=== PATIENT | female | born 1975 | race Caucasian/White ===

== ENCOUNTER 2020-07-30 06:56 | Inpatient (IN) ==
[2020-07-30 07:05] VITALS: BMI 29.8
[2020-07-30] MEDS ORDERED: NS 1000 ML 1,000 ML IV ONE (07:07)
--- NOTE | 2020-07-30 07:13 | DR.AMS ---
HPI Time Seen Time Seen by Provider: 07/30/20 07:06 PCP Primary Care Physician: KEVON HPI Comment HPI Comment: PATIENT IS 45YR OLD FEMALE IN ER VIA EMS UNRESPONSIVE. SHE WAS FOUND IN HER HOME UNRESPONSIVE. EMS WAS CALL BECAUSE SHE WAS CHOKING BUR WAS VOM ITING AND UNRESPONSIVE WHEN EMS ARRIVED. BP ELEVATED AND PULSE IN THE 40S. HISTORY HYPERTENSION. TEMP LOW, 93.6'F. ON NR MASK WITH SPONTANOUS RESPIRATION 100%. O2 SAT. Complaint Cheif Complaint Doctors Comments: UNRESPONSIVE, EMS CALL TO PATIENT THAT WAS CHOKING. Chief Complaint:: ANTHONY CO. EMS RESPONDS TO INITIAL CALL OF PT. CHOKING. [facility] THEN INFORMS ED STAFF THAT PT. WAS NOT BREATHING AND WAS UNRESPONSIVE. PRIOR TO ARRIVAL, PT. WAS BEING VENTILATED WITH AMBU BAG. ONCE PT. ARRIVES TO THE ER, PT. IS ON NON RE-BREATHER @ 100%. PT. HAD VOMITED ON HERSELF ZOO VETERINARIAN. PT. STILL UNRESPONSIVE. COVID-19 Coronavirus risk:travel/contact w/high risk person: No Has patient experienced Coronavirus symptoms: No Reviewed Nurses Notes Reviewed: Yes Source History Provided: EMS Mode of Arrival Mode of Arrival: EMS Timing Onset of Chief Complaint: 07/30/20 Came On: Suddenly Symptoms: Unchanged Symptom Onset: Unknown Duration Duration: Constant Duration: Hours Quality Quality: Change in Behavior Severity Severity: Unresponsive Context Recent: Vomiting; denies Fever (LOW TEMPERATURE.) History Of: None Associated Signs and Symptoms Associated Signs and Symptoms: Unresponsiveness PMH PMH Past Medical History: Yes Past Medical History: Hypertension Past Medical History Comment: ALCOHOL ABUSE Past Surgical History: Yes Surgical History: Unknown Family History History of Family Medical Conditions: No Social History Does patient currently use any type of tobacco product: Yes Have you used tobacco products in the last 12 months: Yes Type of Tobacco Use: Cigarettes Does any household member use tobacco: Yes Alcohol Use: Heavy Do you use any recreational Drugs:: Yes Lives With: Significant Other Lives Where: Home Travel Risk Coronavirus risk:travel/contact w/high risk person: No Has patient experienced Coronavirus symptoms: No Infectious screening In the last 2 months have you had wt loss of >10#?: NO Have you had fever, night sweats or hemotysis?: No Have you traveled outside the country in the last 6 months?: No Isolation: Standard ROS Review of Systems Constitutional: See HPI, Diaphoresis and Other (PATIENT UNRESPONSIVE.); negative Fever (LOW TEMPERATURE.) Eyes: See HPI and Other (PATIENT UNRESPONSIVE.) ENTM: See HPI Respiratoy: See HPI, Short of Breath, Wheezing and Other (PATIENT IS UNRESPONSIVE.) Cardiovascular: See HPI and Other (UNRESPONSIVE.); negative Palpitations (BRADYCARDIA.) Gastrointestinal/Abdominal: See HPI, Vomiting and Other (UNRESPONSIVE.) Genitourinary: See HPI and Other (UNRESPONSIVE.) Neurological: See HPI and Other (UNRESPONSIVE.) Musculoskeletal: See HPI and Other (UNRESPONSIVE.) Integumentary: See HPI and Other (UNRESPONSIVE.) Hematologic/Lymphatic: See HPI and Other (UNRESPONSIVE.) Endocrine: See HPI and Other (UNRESPONSIVE.) Psychiatric: See HPI and Other (UNRESPONSIVE.) Unable to Obtain Due To: Medical urgency PE Vitals Vital Signs: Temp Pulse Resp BP Pulse Ox 07/30/20 08:46 75 18 146/66 100 07/30/20 08:45 75 20 100 07/30/20 08:30 72 19 183/91 100 07/30/20 08:15 59 L 20 186/92 100 07/30/20 08:07 74 24 190/91 100 07/30/20 08:01 64 14 187/82 100 07/30/20 08:00 68 13 100 07/30/20 07:51 63 13 193/97 100 07/30/20 07:45 61 13 100 07/30/20 07:40 64 14 199/88 99 07/30/20 07:36 52 L 19 197/88 100 07/30/20 07:34 57 L 21 100 07/30/20 07:15 51 L 13 100 07/30/20 07:10 62 13 195/83 100 07/30/20 07:00 54 L 23 200/93 100 07/30/20 06:59 93.5 F L 67 10 L 200/93 100 07/30/20 06:58 52 L 13 100 General Limitations: Other (UNRESPONSIVE.) General Appearance: In Distress and Other (UNRESPONSIVE.) Head Head Exam: Atraumatic and Other (UNRESPONSIVE.) Head Exam Physical: Other (UNRESPONSIVE. NONE OF THE ABOVE NOTED.) Eyes Eye exam: Periorbital Swelling and Other (SMALL PUPILS WITH SLUGGIST RESPONSE TO LIGHT.); negative Scleral Icterus, Conjunctival Injection and Periorbital Tenderness ENT ENT Exam: Normal Oropharynx, Normal External Ear Exam and TM's Normal Bilaterally External Ear Exam: negative Auricular Hematoma and Auricular Trauma TM/Canal Exam: Bilateral: Normal Nose Exam: negative Nasal Deviation and Septal Hematoma Mouth Exam: negative Lip Swelling and Tongue Swelling Throat Exam: negative Tonsillar Erythema, Tonsillomegaly and Tonsillar Exudate Neck Neck Exam: Trachea Midline Chest Chest Inspection: Symmetric Chest Wall Rise; negative Rash Respiratory Respiratory Exam: Accessory Muscle Use and Respiratory Distress Respiratory Exam: Bilateral: Wheezing and Bilateral: Rhonchi, Left: Wheezing and Left: Rhonchi, Right: Wheezing and Right: Rhonchi, Upper: Wheezing and Upper: Rh onchi and Lower: Wheezing and Lower: Rhonchi Cardiovascular Cardiovascular Exam: Tachycardia and Other (UNRESPONSIVE.); negative Systolic Murmur and Diastolic Murmur Abdominal Exam Abdominal Exam: Normal Bowel Sounds, Soft and Other (UNRESPONSIVE.) Abdominal Tenderness: Other (UNRESPONSIVE) Extremities Extremities Exam: Normal Capillary Refill and Other (UNRESPONSIVE); negative Edema Back Back Exam: Other (UNRESPONSIVE.) Neurological Neurological Exam: Other (UNRESPONSIVE.) Speech: Other (UNRESPONSIVE.) Cranial Nerve Exam: Spinal Accessory Function (XI): Normal Upper Motor Neuron Exam: Babinski Sign: Normal Psychological Psychiatric Exam: Other (UNRESPONSIVE.) Expanded Psychiatric Exam: Other (UNRESPONSIVE.) Skin Skin Exam: Other (UNRESPONSIVE.); negative Rash and Cyanosis (ON 100% NR MASK.) MDM Differential Diagnosis Metabolic: Dehydration, Hypercalcemia, Hypernatremia, Hypoglycemia and Hyponatremia Structural: Mass Lesion Toxicologic: Drug Overdose Infectious: Sepsis and UTI Environmental: Hyperthermia and Hypothermia COURSE Treatment Treatment: SEE ORDERS. NS 1L IV BOLUS. HYDRALAZINE 10MG IV. ZOSYN 3.375MG IVPB. CRETICAL CARE TIME 25MINS. IT INVOLVE STABILIZING PATIENT, DISCUSSING PATIENTS CONDITION WITH HER FAMILY AND REWARMING PATIENT TO NORMAL TEMPERATURE. PATIENT STARTED REPONSING WHEN HER CARE WAS TURN OVER TO DR. DRIVER AT 08:05AM. Reevaluation 1st: Unchanged (STILL UNRESPONSIVE. TEMP INPROVING.) 2nd: Improved (BP STILL ELEVATED. IV HYDRALAZINE GIVEN. HR IN 60S AND 70S.) Education/Counseling Education/Counseling: Family Educated On: Diagnosis ROR Labs Reviewed Laboratory Results Reviewed?: Yes Result Diagrams: 07/30/20 07:58 07/30/20 07:58 Laboratory: WBC 7.5 X10^3/uL (3.6-10.0) 07/30/20 07:58 RBC 4.80 X10^6/uL (3.5-5.4) 07/30/20 07:58 Hgb 15.0 g/dL (12.0-16.0) 07/30/20 07:58 Hct 45.2 % (36.0-47.0) 07/30/20 07:58 MCV 94.2 fL (80.0-100.0) 07/30/20 07:58 MCH 31.2 pg (27.0-34.0) 07/30/20 07:58 MCHC 33.1 g/dL (33.0-35.0) 07/30/20 07:58 RDW 13.4 % (11.6-16.5) 07/30/20 07:58 Plt Count 258 X10^3/uL (150.0-450.0) 07/30/20 07:58 MPV 7.2 fL (7.4-11.0) L 07/30/20 07:58 Neut % (Auto) 76.8 % (42.0-75.0) H 07/30/20 07:58 Lymph % (Auto) 16.0 % (21.0-51.0) L 07/30/20 07:58 [place] % (Auto) 4.8 % (0.0-13.0) 07/30/20 07:58 Eos % (Auto) 1.5 % (0.9-2.9) 07/30/20 07:58 Baso % (Auto) 0.9 % (0.2-1.0) 07/30/20 07:58 Neut # (Auto) 5.8 x10^3/uL (2.2-4.8) H 07/30/20 07:58 Lymph # (Auto) 1.2 X10^3/uL (1.3-2.9) L 07/30/20 07:58 [place] # (Auto) 0.4 x10^3/uL (0.3-0.8) 07/30/20 07:58 Eos # (Auto) 0.1 x10^3/uL (0.0-0.2) 07/30/20 07:58 Baso # (Auto) 0.1 X10^3/uL (0.0-0.1) 07/30/20 07:58 Absolute Nucleated RBC 0.1 /100WBC 07/30/20 07:58 Sample Site Left radial 07/30/20 06:55 ABG pH 7.300 (7.35-7.45) L 07/30/20 06:55 ABG pCO2 54.0 mmHg (35.0-45.0) H* 07/30/20 06:55 ABG pO2 357.0 mmHg (80.0-100.0) H 07/30/20 06:55 ABG HCO3 26.6 mmol/L (22-26) H 07/30/20 06:55 ABG O2 Saturation 100.0 % (90-100) 07/30/20 06:55 ABG Base Excess -0.6 mmol/L (-2.0-2.0) 07/30/20 06:55 Emanuel Test Pos 07/30/20 06:55 A-a Gradient 289.0 mmHg 07/30/20 06:55 FiO2 100.0 07/30/20 06:55 Blood Gas Comments Ashish well sw 07/30/20 06:55 Sodium 141 mmol/L (136-145) 07/30/20 07:58 Corrected Sodium TNP 07/30/20 07:58 Potassium 3.8 mmol/L (3.5-5.1) 07/30/20 07:58 Chloride 104 mmol/L (98-107) 07/30/20 07:58 Carbon Dioxide 25.4 mmol/L (21-32) 07/30/20 07:58 BUN 14 mg/dL (7-18) 07/30/20 07:58 Creatinine 0.89 mg/dL (0.55-1.02) 07/30/20 07:58 Est GFR (MDRD) Af Amer > 60 (>60) 07/30/20 07:58 Est GFR (MDRD) Non-Af > 60 (>60) 07/30/20 07:58 Glucose 103 mg/dL (65-99) H 07/30/20 07:58 Lactic Acid 1.0 mmol/L (0.4-2.0) 07/30/20 07:58 Calcium 8.9 mg/dL (8.5-10.1) 07/30/20 07:58 Corrected Calcium TNP 07/30/20 07:58 Magnesium 1.9 mg/dL (1.7-2.9) 07/30/20 07:58 Total Bilirubin 0.30 mg/dL (0.2-1.0) 07/30/20 07:58 AST 18 Units/L (15-37) 07/30/20 07:58 ALT 20 Units/L (12-78) 07/30/20 07:58 Alkaline Phosphatase 50 Units/L (46-116) 07/30/20 07:58 Creatine Kinase 162 Units/L (26-192) 07/30/20 07:58 CK-MB (CK-2) 3.3 ng/mL (0-4.0) 07/30/20 07:58 CK/CKMB % Calc 2.0 % (<4) 07/30/20 07:58 Troponin I < 0.02 ng/mL (0-1.5) 07/30/20 07:58 Total Protein 8.1 g/dL (6.4-8.2) 07/30/20 07:58 Albumin 4.0 g/dL (3.4-5.0) 07/30/20 07:58 Globulin 4.1 g/dL (2.5-4.5) 07/30/20 07:58 Albumin/Globulin Ratio 1.0 Ratio (1.1-2.1) L 07/30/20 07:58 Specimen Type Catherized urine 07/30/20 07:05 Urine Color Yellow (YELLOW) 07/30/20 07:05 Urine Appearance Clear (CLEAR) 07/30/20 07:05 Urine pH 6.5 (5.0 - 8.0) 07/30/20 07:05 Ur Specific [place] 1.015 (1.000-1.030) 07/30/20 07:05 Urine Protein 1+ (NEGATIVE) 07/30/20 07:05 Urine Glucose (UA) Negative (NEGATIVE) 07/30/20 07:05 Urine Ketones 2+ (NEGATIVE) 07/30/20 07:05 Urine Occult Blood 2+ (NEGATIVE) 07/30/20 07:05 Urine Nitrite Negative (NEGATIVE) 07/30/20 07:05 Urine Bilirubin Negative (NEGATIVE) 07/30/20 07:05 Urine Urobilinogen Normal (NORMAL) 07/30/20 07:05 Ur Leukocyte Esterase Negative (NEGATIVE) 07/30/20 07:05 Urine RBC 3-5 /HPF (0-3) A 07/30/20 07:05 Urine WBC 0-2 /HPF (0-5) 07/30/20 07:05 Ur Squamous Epith Cells Rare /HPF (NEGATIVE) 07/30/20 07:05 Urine Bacteria Negative /HPF (NEGATIVE) 07/30/20 07:05 Ur Culture Indicated? No/not indicated 07/30/20 07:05 Urine Opiates Screen Negative (NEG=<300) 07/30/20 07:05 Urine Methadone Screen Negative (NEG=<300) 07/30/20 07:05 Ur Barbiturates Screen Negative (NEG=<200) 07/30/20 07:05 Ur Phencyclidine Scrn Negative (NEG=<25) 07/30/20 07:05 Ur Amphetamines Screen Positive (NEG=<1000) A 07/30/20 07:05 U Benzodiazepines Scrn Negative (NEG=<200) 07/30/20 07:05 Urine Cocaine Screen Negative (NEG=<300) 07/30/20 07:05 U Marijuana (THC) Screen Positive (NEG=<50) A 07/30/20 07:05 Ethyl Alcohol mg/dL < 3 mg/dL (0-19.9) 07/30/20 07:58 XRAY XRAY Interpreted by: Radiologist (REPORT NOTED AND DISCUSSED WITH PATIENTS DAUGHTER.) and Self EKG Rate: 42 [place]: Normal Rhythm: SB Block: None Hypertrophy: LVH ST: Nonsp Opioid Opioid Risk Tool Age (Paul box if 16-45): No History of Preadolescent Sexual Abuse: No Total: 0 Total Score Risk Category: Low Risk Copyright: Candido OLMSTEAD predicting aberrant behaviors Diagnosis Discharge Problem: Essential hypertension Aspiration pneumonia Qualifiers: Aspiration pneumonia type: due to gastric secretions Laterality: bilateral Lung location: lower lobe of lung Qualified Code(s): J69.0 - Pneumonitis due to inhalation of food and vomit Hypothermia Qualifiers: Encounter type: initial encounter Qualified Code(s): T68.XXXA - Hypothermia, initial encounter Thoracic aortic aneurysm Qualifiers: Presence of rupture: without rupture Qualified Code(s): I71.2 - Thoracic aortic aneurysm, without rupture Instructions Forms: Patient Portal Social Distancing
[2020-07-30 07:24] LABS: BILIRUBIN,URINE NEGATIVE (NEGATIVE); BLOOD/HEMOGLOBIN,URINE 2+ (NEGATIVE); GLUCOSE, URINE NEGATIVE (NEGATIVE); KETONES,URINE 2+ (NEGATIVE); LEUKOCYTE ESTERASE ,URINE NEGATIVE (NEGATIVE); NITRITES,URINE NEGATIVE (NEGATIVE); PH,URINE 6.5 (5.0 - 8.0); PROTEIN,URINE 1+ (NEGATIVE); UROBILINOGEN,URINE NORMAL (NORMAL)
[2020-07-30 07:32] LABS: APPEARANCE,URINE CLEAR (CLEAR); COLOR,URINE YELLOW (YELLOW)
[2020-07-30 07:33] LABS: BACTERIA,URINE NEGATIVE /HPF (NEGATIVE); SQUAMOUS EPITHELIAL CELL,UR RARE /HPF (NEGATIVE)
[2020-07-30 07:43] LABS: ABG BASE EXCESS -0.6 mmol/L (-2.0-2.0); ABG HCO3 26.6 mmol/L (22-26)
[2020-07-30 07:45] LABS: ABG ALLEN TEST POS
--- NOTE | 2020-07-30 07:55 | CT ---
HISTORYPT UNRESPONSIVE AND NOT BREATHINGSTUDYBRAIN W/O CONCOMPARISONNone availableTECHNIQUEMultiple helical images of the brain from the vertex to the occiput were obtained. Coronal and sagittal reformats were performed. Dose reduction techniques including Automated Exposure Control (AEC) and adjustment of mA and kV were utilized.FINDINGSBilateral frontal lobe periventricular and deep white matter hypoattenuation. A few areas of hypoattenuation are also noted within the left lentiform nucleus and subinsular cortex. [No acute intraparenchymal hemorrhage or mass can be identified.] [No extra-axial fluid collections are seen.] [No alteration in the attenuation of the brain parenchyma can be identified to suggest acute or subacute ischemic change.] [The ventricular system is symmetric and nondilated.] [Rounded low attenuating subcutaneous/bases cyst at the angle of the left nasal bone and maxilla.IMPRESSIONNo acute intracranial hemorrhage.Nonspecific bilateral periventricular and deep white matter hypoattenuation within the frontal lobes and lentiform nucleus are most consistent with age-indeterminate ischemia, based on clinical symptoms, further evaluation MRI can be performed for exclusion of acute/subacute ischemia.Large subcutaneous/sebaceous cyst within the left face at the angle of the left nasal bone and maxilla.Electronically signed by: LUIS A TOSCANO (Jul 30, 2020 07:54:00)
[2020-07-30] MEDS ORDERED: APRESOLINE INJ 20 MG VIAL ONE (07:56)
--- NOTE | 2020-07-30 08:00 | CT ---
HISTORYPT UNRESPONSIVE AND NOT BREATHINGSTUDYCHEST W/O CONCOMPARISONNone availableTECHNIQUEMultiple axial images of the chest were obtained from the thoracic inlet to the upper abdomen without the administration of IV contrast. Dose reduction techniques including Automated Exposure Control (AEC) and adjustment of mA and kV were utilized.FINDINGS[The thyroid gland is normal. Heart size is normal without pericardial effusion. No significant calcified atherosclerotic disease of coronary arteries. There is calcification of the aortic valve. Thoracic aorta demonstrates mild aneurysmal dilatation measuring 4.1 by 3.8 cm on axial image 27. No periaortic hematoma or stranding. No enlarged mediastinal or hilar lymph node identified given limitations of a noncontrast examination. Small sliding hiatal hernia. Combination of volume loss and consolidation within left lower lobe with increased density within the left mainstem bronchus are most consistent with atelectasis in the setting of aspiration. There is small amount aspirate within the right mainstem and lower lobe bronchus. A few tree-in-bud nodular opacities are also noted within the periphery of the right lower lobe. There is mild paraseptal emphysematous change bilaterally. Calcified pulmonary nodule within the right middle lobe. Imaging of the upper abdomen demonstrates no acute inflammatory process. Review of bone windows demonstrates no acute osseous abnormality.IMPRESSIONDense consolidation with volume loss within the left lower lobe most is consistent with atelectasis in the setting of aspiration. A superimposed aspiration pneumonitis/pneumonia should be excluded on a clinical basis. Small amount aspirate is also noted within the right mainstem and lower lobe bronchus with a few tree-in-bud nodular opacities likely also representing bronchiolitis in the setting of aspiration or infection.Mild aneurysmal dilatation of the ascending thoracic aorta measuring 4.1 x 3.8 cm, follow-up nonemergent contrast enhanced chest CT is recommended for assurance of stability.Additional incidental, nonacute findings as described above.Electronically signed by: LUIS A TOSCANO (Jul 30, 2020 07:58:49)
[2020-07-30] MEDS: APRESOLINE INJ 20 MG VIAL IVP ONE ×2 (08:10→11:40)
[2020-07-30 08:15] LABS: BASOPHILS # (AUTO) 0.1 X10^3/uL (0.0-0.1); BASOPHILS % (AUTO) 0.9 % (0.2-1.0); EOSINOPHILS # (AUTO) 0.1 x10^3/uL (0.0-0.2); EOSINOPHILS % (AUTO) 1.5 % (0.9-2.9); HEMATOCRIT 45.2 % (36.0-47.0); LYMPHOCYTES # (AUTO) 1.2 X10^3/uL (1.3-2.9); MEAN CORPUSCULAR HEMOGLOBIN 31.2 pg (27.0-34.0); MEAN CORPUSCULAR HGB CONC 33.1 g/dL (33.0-35.0); MEAN CORPUSCULAR VOLUME 94.2 fL (80.0-100.0); MEAN PLATELET VOLUME 7.2 fL (7.4-11.0); MONOCYTES # (AUTO) 0.4 x10^3/uL (0.3-0.8); MONOCYTES % (AUTO) 4.8 % (0.0-13.0); NEUTROPHILS # (AUTO) 5.8 x10^3/uL (2.2-4.8); NEUTROPHILS % (AUTO) 76.8 % (42.0-75.0); PLATELET COUNT 258 X10^3/uL (150.0-450.0); RED CELL DISTRIBUTION WIDTH 13.4 % (11.6-16.5); WHITE BLOOD COUNT 7.5 X10^3/uL (3.6-10.0)
[2020-07-30] MEDS ORDERED: ZOSYN VIAL 3.375 GRAMS IV ONE (08:16)
[2020-07-30] MEDS ORDERED: NS 100 ML IV 100 ML IV ONE (08:16)
[2020-07-30 08:22] LABS: ALANINE AMINOTRANSFERASE 20 Units/L (12-78); ALKALINE PHOSPHATASE 50 Units/L (46-116); ASPARTATE AMINO TRANSFERASE 18 Units/L (15-37); BLOOD UREA NITROGEN 14 mg/dL (7-18); CALCIUM 8.9 mg/dL (8.5-10.1); CARBON DIOXIDE 25.4 mmol/L (21-32); CHLORIDE 104 mmol/L (98-107); CREATININE 0.89 mg/dL (0.55-1.02); SODIUM 141 mmol/L (136-145); TOTAL PROTEIN 8.1 g/dL (6.4-8.2); eGFR NON BLACK RACES > 60 (>60)
[2020-07-30] MEDS: ZOSYN VIAL 3.375 GRAMS 3.375 G in NS 100 ML IV + SPIKE MINIBAG* 100 ML IV ONE ×2 (08:29→11:42)
[2020-07-30 08:38] LABS: CREATINE KINASE 162 Units/L (26-192); CREATINE KINASE MB 3.3 ng/mL (0-4.0); MAGNESIUM 1.9 mg/dL (1.7-2.9); TROPONIN I < 0.02 ng/mL (0-1.5)
[2020-07-30] MEDS ORDERED: TUSSIONEX PENNKINETIC SUSP PO PRN (09:00)
[2020-07-30] MEDS ORDERED: NS 1/2 1000 ML IV 1,000 ML IV SCH (09:00)
[2020-07-30] MEDS ORDERED: ZOFRAN INJ 4 MG VIAL IVP ONE (09:20)
[2020-07-30] MEDS ORDERED: ZOFRAN INJ 4 MG VIAL ONE (09:23)
[2020-07-30] MEDS ORDERED: NS 1/2 + KCL 20 MEQ/L 1,000 ML IV SCH (10:00)
[2020-07-30] MEDS ORDERED: MAGNESIUM SULFATE IV SCH ×5 (10:48)
[2020-07-30] MEDS ORDERED: NS IV SCH ×5 (10:48)
[2020-07-30] MEDS ORDERED: MVI IV SCH ×5 (10:48)
[2020-07-30] MEDS ORDERED: [UNRECOGNIZED DRUG - OTHER] IV SCH ×5 (10:48)
[2020-07-30] MEDS ORDERED: FLAGYL IV PREMIX 500 MG BAG 500 MG/100 ML BAG IV SCH (11:00)
[2020-07-30] MEDS: ROBITUSSIN DM PO SCH ×4 (11:06→20:49)
[2020-07-30] MEDS: NICOTINE PATCH TD SCH (11:06)
[2020-07-30] MEDS ORDERED: NICOTINE PATCH TD ONE (11:06)
[2020-07-30] MEDS ORDERED: PROVENTIL NEB TX 0.083% 2.5MG/ 3ML NEB PRN (11:26)
[2020-07-30] MEDS: VSL#3 PO SCH (11:35)
[2020-07-30] MEDS: ZOSYN VIAL 3.375 GRAMS 3.375 G in NS 100 ML IV + SPIKE MINIBAG* 100 ML IV SCH ×3 (11:41→22:09)
[2020-07-30] MEDS: VALIUM PO SCH ×2 (12:43→20:49)
[2020-07-30] MEDS ORDERED: FIORICET TAB PO PRN (16:00)
[2020-07-30] MEDS ORDERED: FLAGYL IV PREMIX 500 MG BAG 500 MG/100 ML BAG IV ONE (19:37)
[2020-07-30] MEDS: FLAGYL IV PREMIX 500 MG BAG 500 MG/100 ML BAG IV SCH (21:15)
[2020-07-31] MEDS: FLAGYL IV PREMIX 500 MG BAG 500 MG/100 ML BAG IV SCH (05:01)
[2020-07-31 05:08] LABS: BASOPHILS # (AUTO) 0.1 X10^3/uL (0.0-0.1); BASOPHILS % (AUTO) 0.9 % (0.2-1.0); EOSINOPHILS # (AUTO) 0.1 x10^3/uL (0.0-0.2); EOSINOPHILS % (AUTO) 0.9 % (0.9-2.9); HEMATOCRIT 39.5 % (36.0-47.0); HEMOGLOBIN 13.2 g/dL (12.0-16.0); LYMPHOCYTES # (AUTO) 1.9 X10^3/uL (1.3-2.9); LYMPHOCYTES % (AUTO) 20.9 % (21.0-51.0); MEAN CORPUSCULAR HEMOGLOBIN 31.1 pg (27.0-34.0); MEAN CORPUSCULAR HGB CONC 33.4 g/dL (33.0-35.0); MEAN CORPUSCULAR VOLUME 93.1 fL (80.0-100.0); MEAN PLATELET VOLUME 6.8 fL (7.4-11.0); MONOCYTES # (AUTO) 0.7 x10^3/uL (0.3-0.8); NEUTROPHILS # (AUTO) 6.4 x10^3/uL (2.2-4.8); NEUTROPHILS % (AUTO) 69.3 % (42.0-75.0); PLATELET COUNT 264 X10^3/uL (150.0-450.0); RED BLOOD COUNT 4.24 X10^6/uL (3.5-5.4); RED CELL DISTRIBUTION WIDTH 13.4 % (11.6-16.5); WHITE BLOOD COUNT 9.2 X10^3/uL (3.6-10.0)
[2020-07-31 05:16] LABS: ALANINE AMINOTRANSFERASE 16 Units/L (12-78); ALKALINE PHOSPHATASE 39 Units/L (46-116); ASPARTATE AMINO TRANSFERASE 14 Units/L (15-37); BLOOD UREA NITROGEN 9 mg/dL (7-18); CALCIUM 8.2 mg/dL (8.5-10.1); CARBON DIOXIDE 24.3 mmol/L (21-32); CHLORIDE 104 mmol/L (98-107); SODIUM 138 mmol/L (136-145); TOTAL PROTEIN 6.5 g/dL (6.4-8.2); eGFR NON BLACK RACES > 60 (>60)
[2020-07-31] MEDS: ZOSYN VIAL 3.375 GRAMS 3.375 G in NS 100 ML IV + SPIKE MINIBAG* 100 ML IV SCH (05:59)
[2020-07-31] MEDS ORDERED: POTASSIUM CHL 60 MEQ/NS 0.45% 500 ML IV PRN (07:34)
[2020-07-31] MEDS ORDERED: K-RIDER 10 MEQ/NS 100 ML 10 MEQ/100 ML BAG IV PRN (07:34)
[2020-07-31] MEDS ORDERED: MAGNESIUM SULFATE 1 GRAM/100 mL PREMIX 1 GM/100 ML BAG IV PRN (07:34)
[2020-07-31] MEDS ORDERED: MICRO K EXTEN CAP 10 MEQ PO PRN (07:34)
[2020-07-31] MEDS ORDERED: KLOR-CON PO PRN (07:34)
[2020-07-31] MEDS ORDERED: POTASSIUM CHLORIDE LIQ 20 MEQ UDC PO PRN (07:34)
[2020-07-31] MEDS ORDERED: K-DUR TAB 20 MEQ PO PRN (07:34)
[2020-07-31] MEDS ORDERED: POTASSIUM CHL 40 MEQ/NS 0.45% 500 ML IV PRN (07:34)
[2020-07-31] MEDS: ROBITUSSIN DM PO SCH (09:23)
[2020-07-31] MEDS: VALIUM PO SCH (09:23)
[2020-07-31] MEDS: NICOTINE PATCH TD SCH (09:23)
[2020-07-31] MEDS: VSL#3 PO SCH (09:24)
[2020-07-31 10:46] VITALS: BP 163/95
--- NOTE | 2020-07-31 11:15 | RAD ---
HISTORYPneumoniaSTUDYCHEST, 1 VIEWCOMPARISONNoneFINDINGSThe heart is normal. The pulmonary vessels are normal. The lungs are mildly hyperinflated. No consolidation or effusion is seen. The bones are intact.IMPRESSIONNo acute cardiopulmonary disease.Electronically signed by: CHAPINCITO MOMIN (Jul 31, 2020 11:14:25)
--- NOTE | 2020-08-01 14:15 | DR.CARTERS ---
Short Stay Summary - Admission Date Date of Admission: 07/30/20 - Discharge Date Discharge Date: 07/31/20 - Admission Diagnoses (1) Aspiration pneumonia Status: Acute (2) Hypothermia Status: Acute (3) Essential hypertension Status: Acute - Hospital Course Hospital Course: IS A 45 YEAR OLD PATIENT OF OURS. SHE PRESENTED TO THE ER VIA EMS DUE TO UNRESPONSIVENESS. FAMILY REPORTED THAT THEY FOUND HER IN HER HOME, UNRESPONSIVE. EMS REPORTED THAT PATIENT WAS VOMITING AND DID NOT RESPOND TO V ERBAL STIMULI ON THEIR ARRIVAL. THEY REPORT THAT SHE WAS HYPERTENSIVE AND THAT HER PULSE WAS NOTED TO BE IN THE 40s. SHE WAS HYPOTHERMIC WITH TEMP NOTED TO BE 93.6. ON ARRIVAL TO THE ER, PATIENT WAS BEING VENTILATED WITH THE AMBU BAG. SHE WAS PLACED ON THE NON-REBREATHER AND OXYGEN SATURATIONS WERE NOTED TO BE 100%. SHE CONTINUED TO BE UNRESPONSIVE ON ARRIVAL TO THE ER. PATIENT DOES HAVE A KNOWN HISTORY OF SUBSTANCE AND ALCOHOL ABUSE AND FAMILY FEELS THAT SHE MAY HAVE TAKEN SOMETHING. PUPILS WERE PIN-POINT. AUSCULTATION OF LUNGS REVEALED SCATTERED WHEEZING AND RHONCHI. NO APPARENT TRAUMA NOTED. ON ARRIVAL, VITALS WERE 93.5-67-10-100%NRB-200/93. BEAR HUGGER WAS APPLIED. LABS WERE OBTAINED. GLUCOSE WAS SLIGHTLY ELEVATED AT 103, OTHERWISE, LABS WERE UNREMARKABLE. AN ABG WAS OBTAINED AND REVEALED: PH 7.300, PC02 54, P02 357, HC03 26.6, 02 SAT 100, FI02 100.0. URINALYSIS REVEALED: WBC 0-2, RBC 3-5, BACTERIA NEGATIVE, LEUKOCYTES NEGATIVE, NITRITES NEGATIVE. TOXICOLOGY WAS POSITIV FOR MARIJUANA AND AMPHETAMINES. BLOOD CULTURES WERE SET UP. A BRAIN CT WAS OBTAINED AND REVEALED: No acute intracranial hemorrhage. Nonspecific bilateral periventricular and deep white matter hypoattenuation within the frontal lobes and lentiform nucleus are most consistent with age-indeterminate ischemia, based on clinical symptoms, further evaluation MRI can be performed for exclusion of acute/subacute isc hemia. Large subcutaneous/sebaceous cyst within the left face at the angle of the left nasal bone and maxilla. A CHEST CT WITHOUT CONTRAST WAS OBTAINED AND REVEALED: Dense consolidation with volume loss within the left lower lobe most is consistent with atelectasis in the setting of aspiration. A superimposed aspiration pneumonitis/pneumonia should be excluded on a clinical basis. Small amount aspirate is also noted within the right mainstem and lower lobe bronchus with a few tree-in-bud nodular opacities likely also representing bronchiolitis in the setting of aspiration or infection. Mild aneurysmal dilatation of the ascending thoracic aorta measuring 4.1 x 3.8 cm, follow-up nonemergent contrast enhanced chest CT is recommended for assurance of stability. PATIENT BECAME MORE ALERT WHILE IN THE ER, BUT WAS NOT AWARE OF SITUATION. SHE DENIES USE OF ILLICIT DRUGS OR TAKING ANY PILLS RECENTLY. SHE WAS GIVEN A NORMAL SALINE BOLUS, APRESOLINE 10MG IV X 1, ZOSYN, 3.375G IV X 1, ZOFRAN 4MG IV X 1 IN THE ER. HER BLOOD PRESSURE DID DECREASE TO 151/68. SHE WAS ADMITTED TO THE HOSPITAL FOR FURTHER EVALUATION AND TREATMENT OF ASPIRATION PNEUMONIA, HYPOTHERMIA, AND HYPERTENSION. SHE WAS STARTED ON 1/2NS WITH 20MEQ KCO AT 80 ML/HR, ZOSYN 3.375G IV TID, FLAGYL 500MG IV Q8H, VALIUM 5MG PO BID, A NICOTINE PATCH, FIORCET 1 TAB PO Q6H PRN, AND THE POTASSIUM PROTOCOL. WE PLANNED TO FOLLOW UP WITH AM LABS AND CHEST XRAY AND CONTINUE TO MONITOR. ON THE MORNING FOLLOWING ADMISSION, PATIENT IS ALERT AND ORIENTED, SITTING UP IN BED ON MORNING ROUNDS. SHE DENIES COUGH OR SHORTNESS OF BREATH AND REPORTS FEELING WELL. SHE IS REQUESTING DISCHARGE HOME. ON EXAMINATION, HEART IS REGULAR IN RATE AND RHYTHM. BILATERAL LUNGS ARE NOTED WITH DIMINISHED LUNG SOUNDS THROUGHOUT. ABDOMEN IS ROUND, SOFT, AND NON-TENDER WITH NORMAL BOWEL SOUNDS NOTED IN ALL QUADRANTS. HER VITALS THIS MORNING ARE: 98.3-65-17-100%-151/86. LABS WERE OBTAINED. ABNORMAL LAB VALUES INCLUDE THE FOLLOWING: POTASSIUM 3.1, CALCIUM 8.2, AST 14, ALK PHOS 39, ALBUMIN 3.0. BLOOD CULTURES ARE PENDING. A CHEST XRAY WAS OBTAINED AND REVEALED: NO ACUTE CARDIOPULMONARY DISEASE. WE PLANNED FOR DISCHARGE. INSTRUCTIONS FOR MEDICATIONS AND FOLLOW UP WERE DISCUSSED WITH PATIENT AND FAMILY. THEY VERBALIZED UNDERSTANDING. SHE WAS GIVEN PRESCRIPTIONS FOR CIPRO 500MG PO BID, FLUCONAZOLE 150MG PO Q3D X 3 DOSES. SHE WAS INSTRUCTED TO FOLLOW UP IN THE OFFICE IN TWO WEEKS. SHE WAS DISCHARGED HOME WITH FAMILY IN STABLE CONDITION. TIME SPENT ON CLINICAL ASSESSMENT, REVIEWING LABS AND IMAGING, DECISION MAKING, PREPARATION OF DISCHARGE PAPERS, P RESCRIPTIONS, AND DOCUMENTATION GREATER THAN 75 MINUES. - Discharge Medications Discharge Medications: Home Medication List NK 07/30/20 [History] ciprofloxacin HCl [Cipro] 500 mg PO BID #28 tab 07/31/20 [Rx] fluconazole 150 mg PO Q3D #4 tab 07/31/20 [Rx] Prescriptions: ciprofloxacin HCl [Cipro] Iván Jerze fluconazole Iván Jerez - Discharge Plan Disposition: HOME, SELF-CARE Condition: Stable Prescriptions: ciprofloxacin HCl [Cipro] 500 mg PO BID #28 tab fluconazole 150 mg PO Q3D #4 tab - Follow up/Referrals Follow up/Referrals: Iván Jerez [Primary Care Provider] - 2 WEEKS - Instructions Instructions: Steps to Quit Smoking, [id number], Aspiration Pneumonia Additional Instructions: diet as tolerated. activity as tolerated Forms: Excuse From Work or School, Precautions for COVID19, Patient Portal, Social Distancing
== END 2020-07-31 11:20 | disposition home or self-care (01) | DRG 179 ==
LOC: ER 06:57 → ICU 08:58
PROVIDERS: ADMIT Internal Medicine; ATTEND Internal Medicine
DX: F10.10 Alcohol abuse, uncomplicated; F15.90 Other stimulant use, unspecified, uncomplicated; I10 Essential (primary) hypertension; T68.XXXA Hypothermia, initial encounter; R94.31 Abnormal electrocardiogram [ECG] [EKG]; I71.2 Thoracic aortic aneurysm, without rupture; R40.4 Transient alteration of awareness; J69.0 Pneumonitis due to inhalation of food and vomit; F12.10 Cannabis abuse, uncomplicated